=== PATIENT | male | born 1985 | race Caucasian/White ===

== ENCOUNTER 2024-04-19 19:47 | Outpatient (REF) | payer OTHER, SELFPAY ==
--- OUTSIDE RECORDS SUMMARY | 2024-04-19 19:50 | XMS_ITS ---
Author Organization [facility] [place] [address] Care Team Providers Care Rat Exterminator Name Role Phone Out of Area, Provider Primary Care Provider Unav ailable Toni Sorensen Unavailable [phone] REASON FOR VISIT med issue MEDICATIONS Medication SIG (Take, Route, Frequency, Duration) Notes Start Date End Date Status Breo Ellipta 100-25 MCG/ACT 1 puff Inhalation Once a day for 30 days 11/24/2022 Active Encounters Encounter Location Date Provider Diagnosis [address] [address] 11/24/2022 Toni Sorensen PLAN OF TREATMENT Medication Medication Name Sig Start Date Stop Date Notes Breo Ellipta 100-25 MCG/ACT 1 puff Inhal ation Once a day for 30 days 11/24/2022 Budesonide-Formoterol Fumarate 80-4.5 MCG/ACT 2 puffs Inhalation Twice a day 08/05/2022 Progress Notes * Ryland HUMPHREY ADOB:1985 (37 yo M)Acc No.[id number]:11/24/2022 Patient:??Ryland Humphrey :1985?Age:37 Y?Sex:Carina jameson Address:[address] [place] [id number] * Refills?? Stop Budesonide-Formoterol Fumarate Aerosol, 80-4.5 MCG/ACT, Inhalation, 2 puffs, Twice a day Start Breo Ellipta Aerosol Powder Breath Activated, 100-25 MCG/ACT, Inhalation, 1, 1 puff, Once a day, 30 days, Refills=3 * true * Date:??
--- OUTSIDE RECORDS SUMMARY | 2024-04-19 19:50 | XMS_ITS ---
Author Organization [facility] Address [place] [address] Care Team Providers Care Round Kiln Drawer Name Role Phone Out of Area, Provider Primary Care Provider Unav ailable Toni Sorensen Unavailable [phone] REASON FOR VISIT annual Encounters Encounter Location Date Provider Diagnosis [address] [address] 10/01/2023 Toni Sorensen PLAN OF TREATMENT No Information Progress Notes * Ryland HUMPHREY ADOB:1985 (38 yo M)Acc No.[id number]:10/01/2023 Physical Patient:??Ryland HUMPHREY Provider:??Toni Sorensen MD :1985?Age:37 Y?Sex:Ma le Date:10/01/2023 Address:[address] [place], [place] [id number] Pcp:Provider Out of Area Subjective: * Chief Complaints: * ?1. Annual. * Medical History:?? Objective: Assessment: Plan: * Treatment: * Billing Information: * Visit Code:?? * Procedure Codes:?? * Sign off status: Pending * Provider:??Toni Sorensen MD Date:??0 10/01/2023
--- OUTSIDE RECORDS SUMMARY | 2024-04-19 19:50 | XMS_ITS | Patient Health Record ---
Author Organization [facility] [place] [address] Care Team Providers Care Grading Clerk Name Role Phone Out of Area, Provider Primary Care Provider Unav ailable Toni Sorensen Unavailable [phone] ALLERGIES No Known Allergies REASON FOR REFERRAL No Information MEDICATIONS Medication SIG (Take, Route, Frequency, Duration) Notes Start Date End Date Status Breo Ellipta 100-25 MCG/ACT 1 puff Inhalation Once a day for 30 days 11/24/2022 Active HYDROcodone-Acetami nophen PRN for tooth pain Active CPAP 10 cm h20 nasal at bedtime for 365 days CPAP SUPPLIES ONLY - NASAL MASK/NASAL PILLOWS SMALL /TUBING/FILTERS ETC RESPRIONICS DREAM ALEXIS MACHINE ON HAND 09/29/2019 Active Albuterol Sulfate HFA 108 (90 Base) MCG/ACT 1-2 puffs as needed Inhalation every 4 hrs for 90 days Active IMMUNIZATIONS Vaccine Route Administration Date Status Comme nts Moderna Covid Vaccine # 1 Unknown 01/06/2021 Administer ed Moderna Covid Vaccine # 2 Unknown 02/03/2021 Administer ed Tdap (Private) IM Intramuscular 05/19/2019 Administered SOCIAL HISTORY Tobacco Use: Social History Observation Description Date Details (start date - stop date) Never Smoker NA - NA Sex Assigned At : Social History Observation Description Sex Assigned At Unknown Tobacco Use/Smoking Question Answer Notes Are you a nonsmoker Alcohol Screen (Audit-C) Question Answer Notes Did you have a drink contain ing alcohol in the past year? Yes How often did you have a dri nk containing alcohol in the past year? 2 to 4 times a month (2 points) How many drinks did you have on a typical day when you were drinking in the past year? 1 or 2 drinks (0 point) How often did you have 6 or more drinks on one occasion in the past year? Never (0 point) Points 2 Interpretation Negative PROBLEMS Problem Type ICD Code Onset Dates Problem Status W/U Status Risk SNOMED Code Notes Problem Mild intermittent asthma without complication (J45.20) Active confirmed 038516803 Problem GENET (obstructive sleep apnea) (G47.33) Active confirmed 55336697 Problem Stress (F43.9) Active confirmed 1287475 [id number] Encounters Encounter Location Date Provider Diagnosis [address] [address] 10/01/2023 Toni Sorensen PLAN OF TREATMENT Future Test Test Name Order Date [id number]-PCR ([facility]) 06/13 Sars-CoV-2 BDMax detection by PCR ([place] 09/24/2021 Insurance Providers Payer Name Payer Address Payer Phone Subscriber Number Group Number Insured Name Patient Relationship to Insured Coverage Start Date Coverage End Date [facility] [address] [place] [address] [id number] Ryland Humphrey Self - patient is the insured MEDICAL (GENERAL) HISTORY Medical History History ICD Code GENET on CPAP Surgical History Surgery Date(Month/Year) Tonsillectomy and Adnoidectomy Hospitalization History Reason Date(Month/Year)
[2024-04-19 20:34] LABS: Abs Immature Grans 0.01 10^3/uL (0.0-0.06); Absolute Basophil Count 0.04 10^3/uL (0.0-0.2); Absolute Eosinophil Count 0.15 10^3/uL (0.0-0.7); Absolute Lymphocyte Count 2.18 10^3/uL (1.2-3.4); Absolute Monocyte Count 0.43 10^3/uL (0.1-0.8); Absolute Neutrophil Count 3.05 10^3/uL (1.2-6.7); Basophils % 0.7 %; Eosinophils % 2.6 %; HCT 44.4 % (40.0-50.0); HGB 14.8 g/dL (13.5-17.5); Immature Grans % 0.2 %; Lymphocytes % 37.2 %; MCH 29.5 pg (27.0-33.0); MCHC 33.3 % (32.0-36.0); MCV 88 fL (80-95); MPV 11.4 fL (8.0-11.0); Monocytes % 7.3 %; Platelet Count 219 10^3/uL (130-400); RBC 5.02 10^6/uL (4.36-5.78); RDW 12.1 % (11.8-14.1); RDW-SD 39.2 fL; WBC 5.86 10^3/uL (4.4-10.8)
[2024-04-19 20:51] LABS: ALT 35 U/L (16-63); AST 20 U/L (15-37); Albumin 4.5 g/dL (3.4-5.0); Alkaline Phosphatase 42 U/L (46-116); Anion Gap 7.3 mmol/L (3-11); BUN 16 mg/dL (7-18); Bilirubin, Total 0.51 mg/dL (0.2-1.0); CO2 29.7 mmol/L (21.0-32.0); CREATININE 0.9 mg/dL (0.70-1.30); Calcium 9.6 mg/dL (8.5-10.1); Chloride 103 mmol/L (98-107); Estimated GFR 112.81 (mL/min/1.73m2); Glucose 101 mg/dL (74-106); Potassium 4.6 mmol/L (3.5-5.1); Sodium 140 mmol/L (136-145); Total Protein 7.2 g/dL (6.4-8.2)
[2024-04-20 21:32] LABS: HIV-1/2 Ag & Ab Screen Negative (Negative); Hepatitis C Ab w Rflx HCV PCR Negative (Negative)
[2024-04-21 12:27] LABS: Syphilis Serology (RPR) Negative (Negative)
[2024-04-21 13:45] LABS: Chlamydia Result Negative (Negative); GC Result Negative (Negative)
== END 2024-04-19 19:48 | disposition home or self-care (01) ==
LOC: NCHCN 19:47
PROVIDERS: PCP Nurse Practitioner Family; Visit Provider Nurse Practitioner Family
DX: R51.9 Headache, unspecified (principal); Z11.3 Encounter for screening for infections with a predominantly sexual mode of transmission; Z11.4 Encounter for screening for human immunodeficiency virus [HIV]; Z11.59 Encounter for screening for other viral diseases
CPT/HCPCS: 80053; 86803; 87389; 87491; 87591; 85025; 86592